=== PATIENT | female | born 1940 | race Caucasian/White ===

== ENCOUNTER 2016-10-30 11:07 | Emergency (ER) | payer MEDICARE ==
[~2016-10-30] VITALS: Ht 157.5 cm; Wt 68.0 kg
[2016-10-30 11:17] VITALS: BP_DIAS 155
--- NOTE | 2016-10-30 12:11 | PHYS DOC ---
Past History Past Medical History: Cancer, Heart Disease, [place] Past Surgical History: Other Alcohol Use: None Drug Use: None Adult General Chief Complaint Chief Complaint: ANKLE INJURY HPI HPI Patient is a 76-year-old female brought to the ED by her daughter after an injury to her left ankle this morning. Patient was going to [employer] and she stepped wrong off of a curb. Her ankle is painful and swollen. She sat in the car and didn't go to any more garage sales after the injury. She is able to ambulate with difficulty. She denies other injury. She did have 2 bones in her left foot broken from a similar mechanism more than 6 months ago, that is all healed up. Review of Systems Review of Systems Constitutional: Denies fever or chills [] Respiratory: Denies cough or shortness of breath [] Cardiovascular: Denies chest pain Musculoskeletal: As in history of present illness Allergies Allergies Allergies Coded Allergies Type Severity Reaction Last Updated Verified iodine Allergy Unknown Rash 10/30/16 Yes Physical Exam Physical Exam Constitutional: Well developed, well nourished, no acute distress, non-toxic appearance. [] HENT: Normocephalic, atraumatic, bilateral external ears normal, nose normal. [ ] Eyes: conjunctiva normal, no discharge. [] Neck: Normal range of motion, no stridor. [] Skin: Warm, dry, no erythema, no rash. [] Extremities: Left knee nontender without joint effusion. Left proximal tibia tender on the medial aspect, no proximal fibula tenderness. No crepitance or deformity. Left ankle swelling laterally. No fifth metatarsal tenderness. Neurologic: Alert and oriented X 3, normal motor function, normal sensory function, no focal deficits noted. [] Current Patient Data Vital Signs Vital Signs Date Time Temp Pulse Resp B/P Pulse Ox O2 Delivery O2 Flow Rate FiO2 10/30/16 11:17 97.9 82 12 99 EKG EKG [] Radiology/Procedures Radiology/Procedures X-rays of the left ankle and left tib-fib read by me. No acute fracture. No other bony abnormality. [] Course & Med Decision Making Course & Med Decision Making Pertinent Labs and Imaging studies reviewed. (See chart for details) 76-year-old female twisted her ankle stepping off a curb. X-rays negative for fracture. She was placed into an Mario wrap. I advised her to rest, ice, elevate for 2-3 days and if she is not improving recheck with her doctor. [] Dragon Disclaimer Dragon Disclaimer This chart was dictated in whole or in part using Voice Recognition software in a busy, high-work load, and often noisy Emergency Department environment. It may contain unintended and wholly unrecognized errors or omissions. Departure Departure: Impression: Primary Impression: Left ankle sprain Disposition: HOME, SELF-CARE Condition: STABLE Patient Instructions: Ankle Sprain, [id number] Additional Instructions: Try to stay off of your ankle and keep it elevated and iced for the next 2 or 3 days, as discussed. KEMAL CARD MD Oct 30, 2016 12:11
--- NOTE | 2016-10-30 12:19 | RAD ---
Indications: Stepped off ledge and twisted ankle. Pain and swelling on the lateral side. Two-view study of the left tibia and fibula: No acute fracture or dislocation or osteolytic process is seen. 3 view left ankle study: No acute fracture or dislocation or osteolytic process is seen. The mortise ankle joint is intact. A small mortise ankle joint effusion is seen. Lateral soft tissue swelling is evident. IMPRESSION: No acute fracture.
== END 2016-10-30 12:15 | disposition home or self-care (01) ==
LOC: ER 11:07
DX: S93.402A Sprain of unspecified ligament of left ankle, initial encounter (principal); I25.2 Old myocardial infarction; Z91.041 Radiographic dye allergy status; W22.8XXA Striking against or struck by other objects, initial encounter; Y93.89 Activity, other specified; Y99.8 Other external cause status; Y92.89 Other specified places as the place of occurrence of the external cause
CPT/HCPCS: 73590; 73610; 99284